=== PATIENT | male | born 1985 | race American Indian/Alaskan Native ===

== ENCOUNTER 2017-10-28 21:40 | Emergency (ER) | payer SELFPAY ==
[2017-10-28 22:14] VITALS: BP 109/61
[2017-10-28 22:46] LABS: Hematocrit 42.7 % (35.5-45.6); Mean Corpuscular HGB Conc 33 % (32-34); Mean Corpuscular Hemoglobin 27 pg (28-32); Mean Corpuscular Volume 83 fl (84-94); Platelet Count 204 K/mm3 (140-440); Red Blood Count 5.15 M/mm3 (3.65-5.03); Red Cell Distribution Width 13.4 % (13.2-15.2)
[2017-10-28 23:01] LABS: Albumin 4.3 g/dL (3.9-5)
[2017-10-28 23:29] LABS: Band Neutrophils # (Manual) 0.1 K/mm3; Total Cells Counted 100
[2017-10-28 23:31] LABS: Ovalocytes 1+
[2017-10-29 00:15] LABS: Bilirubin,Urine NEG (Negative); Blood,Urine NEG (Negative); Color,Urine Yellow (Yellow); Mucus,Urine FEW /HPF; Protein,Urine <15 mg/dL mg/dL (Negative); Urobilinogen,Urine < 2.0 mg/dL (<2.0)
[2017-10-29 00:20] LABS: Benzodiazepines Screen,Urine PRESUMPTIVE NEGATIVE; Methadone Screen,Urine PRESUMPTIVE NEGATIVE; Opiate Screen,Urine PRESUMPTIVE NEGATIVE
[2017-10-29 00:35] LABS: Amphetamine Screen,Urine PRESUMPTIVE POSITIVE; Cannabinoid Screen,Urine PRESUMPTIVE POSITIVE; Cocaine Screen,Urine PRESUMPTIVE POSITIVE
--- NOTE | 2017-10-29 02:11 | Emergency Department Report ---
ED Abdominal Pain HPI - General Chief Complaint: Abdominal Pain Stated Complaint: CHECK UP Time Seen by Provider: 10/29/17 00:48 Source: patient, EMS Mode of arrival: Wheelchair Limitations: No Limitations - History of Present Illness Initial Comments: History of umbilical hernia thinks it is now nonreducible nauseated question of passing gas here for evaluation of abdominal pain does have meth and cocaine on his drug screen MD Complaint: abdominal pain -: unknown Location: diffuse Migration to: no migration Severity: mild Quality: cramping Consistency: intermittent Improves With: nothing Worsens With: nothing Associated Symptoms: denies other symptoms, nausea, vomiting. denies: diarrhea , fever, chills, dysuria, hematemesis, hematochezia, melena, hematuria, anorexia , syncope - Related Data Allergies Allergy/AdvReac Type Severity Reaction Status Date / Time No Known Allergies Allergy Unverified 10/28/17 22:14 ED Review of Systems ROS: Stated complaint: CHECK UP Other details as noted in HPI Comment: All other systems reviewed and negative Constitutional: denies: diaphoresis, fever, malaise ENT: denies: dental pain, hearing loss, epistaxis Respiratory: denies: shortness of breath, SOB with exertion, SOB at rest, stridor Cardiovascular: denies: chest pain, palpitations, dyspnea on exertion, orthopnea , edema, syncope, paroxysmal nocturnal dyspnea Endocrine: denies: excessive sweating, flushing, increased hunger Gastrointestinal: abdominal pain, nausea. denies: diarrhea, constipation, hematemesis, melena, hematochezia Genitourinary: denies: frequency, hematuria, discharge Musculoskeletal: denies: joint swelling, arthralgia Skin: denies: pruritus Neurological: denies: headache, weakness, numbness, paresthesias, confusion, vertigo Psychiatric: denies: suicidal thoughts ED Past Medical Hx - Surgical History Additional Surgical History: angioplasty as a child - Social History Smoking Status: Current Every Day Smoker Substance Use Type: Marijuana ED Physical Exam - General Limitations: No Limitations General appearance: alert, in no apparent distress, anxious - Head Head exam: Present: atraumatic, normocephalic - Eye Eye exam: Present: PERRL, EOMI - ENT ENT exam: Present: normal exam, normal orophraynx - Neck Neck exam: Absent: tenderness, meningismus - Respiratory Respiratory exam: Present: normal lung sounds bilaterally. Absent: respiratory distress, wheezes, rales, rhonchi, stridor, chest wall tenderness, accessory muscle use, decreased breath sounds, prolonged expiratory - Cardiovascular Cardiovascular Exam: Present: regular rate, normal rhythm, normal heart sounds - GI/Abdominal GI/Abdominal exam: Present: soft, tenderness, other (question of umbilical hernia question of reducibility). Absent: guarding, rebound - Extremities Exam Extremities exam: Present: normal inspection, normal capillary refill. Absent: pedal edema, joint swelling, calf tenderness - Back Exam Back exam: Present: normal inspection. Absent: CVA tenderness (R), CVA tenderness (L), muscle spasm, paraspinal tenderness, vertebral tenderness, rash noted - Neurological Exam Neurological exam: Present: alert, oriented X3, CN II-XII intact. Absent: motor sensory deficit ED Course Vital Signs 10/28/17 22:08 Temperature 98.7 F Pulse Rate 91 H Respiratory 18 Rate Blood Pressure 109/61 O2 Sat by Pulse 95 Oximetry ED Medical Decision Making - Lab Data Result diagrams: 10/28/17 22:28 10/28/17 22:28 - Medical Decision Making CT shows normal appendix and no evidence of bowel obstruction no evidence of incarcerated hernia. Patient is tolerating by mouth vital signs were stable after studies were unremarkable he is stable for outpatient follow-up Critical care attestation.: If time is entered above; I have spent that time in minutes in the direct care of this critically ill patient, excluding procedure time. ED Disposition Clinical Impression: Abdominal pain Disposition: DC-01 TO HOME OR SELFCARE Is pt being admited?: No Condition: Stable Instructions: Abdominal Pain (ED) Additional Instructions: return if new or alarming sx or call 911, see the doctorlisted Referrals: KATHY HALL MD [Primary Care Provider] - 3-5 Days Time of Disposition: 02:46
--- NOTE | 2017-10-29 02:29 | Cat Scan Report ---
FINAL REPORT PROCEDURE: CT ABDOMEN PELVIS W CON TECHNIQUE: Computerized axial tomography of the abdomen and pelvis was performed after the IV injection of iodinated nonionic contrast. HISTORY: abd pain COMPARISON: No prior studies are available for comparison. FINDINGS: Visualized lower thorax: No significant abnormality. Liver: Normal size and attenuation. Spleen: Normal size and attenuation. Gallbladder and biliary system: Normal. Pancreas: Normal. Adrenals: Normal. Kidneys: Normal. GI tract: No obstruction. No ileus or enteritis. The cecum, appendix and colon are normal. Lymph nodes and mesentery: Normal. Vasculature: Normal. Bladder: Normal. Reproductive organs: Normal. Peritoneum: No free fluid. Musculoskeletal structures: No significant abnormality. Other: None. IMPRESSION: There is no evidence of intestinal or urinary tract obstruction. No ileus or enteritis. The appendix is normal.
== END 2017-10-29 03:00 | disposition home or self-care (01) ==
LOC: ED 21:40
DX: R10.84 Generalized abdominal pain (principal); F17.200 Nicotine dependence, unspecified, uncomplicated
CPT/HCPCS: 36415; 74177; 80053; 80307; 81001; 85007; 85025; 99284; Q9967